=== PATIENT | male | born 1980 | race Caucasian/White ===

== ENCOUNTER 2018-03-29 12:53 | Inpatient (IN) | payer MEDICAID, OTHER ==
[~2018-03-29] VITALS: Ht 172.7 cm; Wt 105.2 kg
[~2018-03-29 12:53] MED LIST: CYAN250010 PO
[2018-03-29] MEDS ORDERED: MAGNESIUM SULFATE 2 GM, MVI, ADULT NO.1 WITH VIT K 10 ML, THIAMINE HCL 100 MG, FOLIC AC... IV ONE ×5 (13:30)
[2018-03-29] MEDS ORDERED: LORazepam 2 MG/ML VIAL IVP ONE (13:30)
[2018-03-29 13:46] LABS: BASOPHILS % (AUTO) 1.2 % (0.0-2.0); EOSINOPHILS % (AUTO) 1.1 % (1.0-6.0); HEMATOCRIT 43.7 % (41-53); HEMOGLOBIN 14.7 g/dL (13.5-17.5); LYMPHOCYTES # (AUTO) 0.9 K/uL (1.0-4.8); LYMPHOCYTES % (AUTO) 22.6 % (22.0-44.0); MEAN CORPUSCULAR HEMOGLOBIN 31.2 pg (26.0-34.0); MEAN CORPUSCULAR HGB CONC 33.6 G/dL (31.0-37.0); MEAN CORPUSCULAR VOLUME 93 fL (80-100); MONOCYTES # (AUTO) 0.6 K/uL (0.1-1.0); MONOCYTES % (AUTO) 13.5 % (2.0-9.0); NEUTROPHILS # (AUTO) 2.5 K/uL (1.8-7.7); NEUTROPHILS % (AUTO) 61.6 % (40.0-70.0); PLATELET COUNT (AUTO) 130 K/uL (150-450); RED CELL DISTRIBUTION WIDTH 14.2 % (11.5-14.5)
[2018-03-29 13:56] LABS: ANION GAP 16 mmol/L (8-16); CALCIUM, TOTAL 8.7 mg/dL (8.8-10.5); CARBON DIOXIDE 22 mmol/L (22-29); CHLORIDE 97 mmol/L (98-107); CREATININE 0.89 mg/dL (0.60-1.30); GLOMERULAR FILTR. RATE CALC > 60 mL/min (>60); GLUCOSE,RANDOM 93 mg/dL (70-110); POTASSIUM 3.5 mmol/L (3.5-5.1); SODIUM SERUM 135 mmol/L (136-145); UREA NITROGEN, BLOOD 5 mg/dL (7-18)
[2018-03-29 14:02] LABS: ALANINE AMINOTRANSFERASE 49 U/L (12-78); ALBUMIN 3.8 g/dL (3.4-5.0); ALKALINE PHOSPHATASE 130 U/L (46-116); ASPARTATE AMINOTRANSFERASE 95 U/L (15-37); BILIRUBIN,TOTAL 0.6 mg/dL (0.1-1.0)
[2018-03-29 14:50] LABS: APPEARANCE,URINE CLOUDY (CLEAR); BILIRUBIN,URINE NEGATIVE (NEGATIVE); GLUCOSE, URINE (UA) NEGATIVE (NEGATIVE); KETONES,URINE TRACE mg/dL (NEGATIVE); LEUKOCYTE ESTERASE ,URINE NEGATIVE (NEGATIVE); NITRATE,URINE NEGATIVE (NEGATIVE); OCCULT BLOOD,URINE MODERATE (NEGATIVE); PROTEIN,URINE SEE CONFIRM (NEGATIVE); UROBILINOGEN,URINE 0.2 mg/dL (<=1.0)
[2018-03-29 14:56] LABS: AMPHET/METH SCREEN,URINE NEGATIVE (NEGATIVE); BARBITURATE SCREEN, URINE NEGATIVE (NEGATIVE); BENZODIAZEPINES SCREEN,URINE NEGATIVE (NEGATIVE); CANNABINOID SCREEN,URINE NEGATIVE (NEGATIVE); COCAINE SCREEN,URINE NEGATIVE (NEGATIVE); METHADONE SCREEN, URINE NEGATIVE (NEGATIVE); OPIATE SCREEN,URINE NEGATIVE (NEGATIVE)
[2018-03-29 15:04] LABS: PHENCYCLIDINE SCREEN,URINE NEGATIVE (NEGATIVE)
[2018-03-29 15:12] LABS: SULFOSALICYLIC ACID,URINE Trace (Negative)
[2018-03-29 15:14] LABS: BACTERIA,URINE None Seen /HPF (None Seen); RBC,URINE 0-2 /HPF (0-2); SQUAMOUS EPITHELIAL CELL,UR Few /LPF (None Seen); WBC,URINE 0-2 /HPF (0-5)
[2018-03-29] MEDS ORDERED: LORazepam 2 MG TABLET PO PRN (15:45)
[2018-03-29] MEDS ORDERED: 0.9% SODIUM CHLORIDE 10 ML SYRINGE IVP PRN (15:45)
[2018-03-29] MEDS ORDERED: SODIUM CHLORIDE 0.9% 1,000 ML IV ONE ×2 (15:45→20:00)
[2018-03-29] MEDS ORDERED: ONDANSETRON HCL 4 MG/2 ML VIAL IVP PRN ×2 (15:45→20:00)
[2018-03-29] MEDS ORDERED: ACETAMINOPHEN 325 MG TABLET PO PRN ×2 (15:45→20:00)
[2018-03-29 15:49] LABS: PHOSPHORUS 2.1 mg/dL (2.5-4.9)
[2018-03-29 16:13] VITALS: BP 149/88
[2018-03-29 17:00] VITALS: BP 145/81
[2018-03-29 18:00] VITALS: BP 151/92
[2018-03-29 19:33] VITALS: BP 154/98
[2018-03-29] MEDS ORDERED: MAGNESIUM OXIDE 400 MG TABLET PO ONE (20:00)
[2018-03-29] MEDS ORDERED: LORazepam 2 MG/ML VIAL IVP PRN (20:00)
[2018-03-29] MEDS ORDERED: MAGNESIUM HYDROXIDE SUSPENSION 30 ML UDCUP PO PRN (20:00)
[2018-03-30] VITALS (8 sets, daily range): BP systolic 119–151; BP diastolic 64–98
[2018-03-30 06:28] LABS: BASOPHILS % (AUTO) 0.7 % (0.0-2.0); EOSINOPHILS % (AUTO) 2.2 % (1.0-6.0); HEMATOCRIT 40.7 % (41-53); HEMOGLOBIN 13.9 g/dL (13.5-17.5); LYMPHOCYTES # (AUTO) 0.8 K/uL (1.0-4.8); LYMPHOCYTES % (AUTO) 17.9 % (22.0-44.0); MEAN CORPUSCULAR HEMOGLOBIN 31.3 pg (26.0-34.0); MEAN CORPUSCULAR HGB CONC 34.2 G/dL (31.0-37.0); MEAN CORPUSCULAR VOLUME 91 fL (80-100); MONOCYTES # (AUTO) 0.8 K/uL (0.1-1.0); MONOCYTES % (AUTO) 16.8 % (2.0-9.0); NEUTROPHILS # (AUTO) 2.9 K/uL (1.8-7.7); NEUTROPHILS % (AUTO) 62.4 % (40.0-70.0); PLATELET COUNT (AUTO) 120 K/uL (150-450); RED BLOOD CELL COUNT(AUTO) 4.46 MIL/uL (4.50-5.90); RED CELL DISTRIBUTION WIDTH 14.2 % (11.5-14.5)
[2018-03-30 06:53] LABS: ALANINE AMINOTRANSFERASE 42 U/L (12-78); ALBUMIN 3.3 g/dL (3.4-5.0); ALKALINE PHOSPHATASE 103 U/L (46-116); ANION GAP 10 mmol/L (8-16); ASPARTATE AMINOTRANSFERASE 69 U/L (15-37); CALCIUM, TOTAL 7.8 mg/dL (8.8-10.5); CARBON DIOXIDE 26 mmol/L (22-29); CHLORIDE 102 mmol/L (98-107); CREATININE 0.75 mg/dL (0.60-1.30); GLOMERULAR FILTR. RATE CALC > 60 mL/min (>60); GLUCOSE,RANDOM 88 mg/dL (70-110); POTASSIUM 3.1 mmol/L (3.5-5.1); SODIUM SERUM 138 mmol/L (136-145); TOTAL PROTEIN, SERUM 7.1 g/dL (6.4-8.2); UREA NITROGEN, BLOOD 4 mg/dL (7-18)
[2018-03-30] MEDS ORDERED: LORazepam 1 MG TABLET PO PRN (07:00)
[2018-03-30] MEDS ORDERED: LORazepam 2 MG TABLET PO PRN (07:00)
[2018-03-30] MEDS ORDERED: MULTIVITAMINS WITH MINERALS, THERAPEUTIC TABLET PO SCH (09:00)
[2018-03-30] MEDS ORDERED: LORazepam 2 MG TABLET PO SCH (09:00)
[2018-03-30] MEDS ORDERED: PANTOPRAZOLE SODIUM 40 MG DR TABLET PO SCH (09:00)
[2018-03-30] MEDS ORDERED: MAGNESIUM SULFATE 2 GM/WATER 50 ML IV PRN (10:15)
[2018-03-30] MEDS ORDERED: POTASSIUM CHL 10 MEQ/WATER 50 ML IV PRN (10:15)
[2018-03-30] MEDS ORDERED: MAGNESIUM OXIDE 400 MG TABLET PO PRN (10:15)
[2018-03-30] MEDS ORDERED: MAGNESIUM SULFATE 4 GM/WATER 100 ML IV PRN (10:15)
[2018-03-30] MEDS: POTASSIUM CHLORIDE 20 MEQ ER TABLET PO PRN ×3 (10:38→17:08)
[2018-03-30] MEDS: ChlordiazePOXIDE HCL 10 MG CAPSULE PO SCH ×2 (15:09→20:10)
[2018-03-31 04:30] VITALS: BP 128/80
[2018-03-31] MEDS ORDERED: BENZ1TAB10 PO (04:31)
[2018-03-31] MEDS ORDERED: LITH600C PO (04:31)
[2018-03-31] MEDS ORDERED: OLAN15TA18 PO (04:31)
[2018-03-31] MEDS ORDERED: PROP20TA7 PO (04:31)
[2018-03-31] MEDS ORDERED: [UNRECOGNIZED DRUG - CODE] PO (04:31)
[2018-04-01] MEDS ORDERED: LORazepam 1 MG TABLET PO PRN (07:00)
[2018-04-01] MEDS ORDERED: LORazepam 1 MG TABLET PO SCH (09:00)
== END 2018-03-31 06:08 | disposition left against medical advice (07) | DRG 101 ==
LOC: EMS 12:54 → 5S 15:47 → 5N 17:46
PROVIDERS: ADMIT Internal Medicine; ATTEND Internal Medicine
DX: G40.89 Other seizures (principal); E66.9 Obesity, unspecified; E83.42 Hypomagnesemia; Z91.19 Patient's noncompliance with other medical treatment and regimen; F17.210 Nicotine dependence, cigarettes, uncomplicated; F10.10 Alcohol abuse, uncomplicated; Z87.820 Personal history of traumatic brain injury; Z87.01 Personal history of pneumonia (recurrent); Y90.9 Presence of alcohol in blood, level not specified; Z68.35 Body mass index [BMI] 35.0-35.9, adult
CPT/HCPCS: 70450; 83735; 84100; 84132; 93005; 96365; 96375; G0378; G0480; J2060; J3411; J3475; J3490; J7030

== ENCOUNTER 2020-08-21 16:58 | Emergency (ER) | payer MEDICAID, OTHER ==
[~2020-08-21] VITALS: Ht 175.3 cm; Wt 100.0 kg
[~2020-08-21 16:58] MED LIST changes: +BENZ1TAB10 PO; -CYAN250010 PO; +LITH600C PO; +OLAN15TA18 PO; +PROP20TA7 PO; +[UNRECOGNIZED DRUG - CODE] PO
[2020-08-21 18:24] LABS: BASOPHILS % (AUTO) 1.3 % (0.0-2.0); EOSINOPHILS % (AUTO) 0.9 % (1.0-6.0); HEMATOCRIT 39.9 % (41-53); HEMOGLOBIN 13.3 g/dL (13.5-17.5); LYMPHOCYTES % (AUTO) 17.3 % (22.0-44.0); MEAN CORPUSCULAR HEMOGLOBIN 30.8 pg (26.0-34.0); MEAN CORPUSCULAR HGB CONC 33.3 G/dL (31.0-37.0); MEAN CORPUSCULAR VOLUME 93 fL (80-100); MONOCYTES # (AUTO) 0.8 K/uL (0.1-1.0); MONOCYTES % (AUTO) 14.5 % (2.0-9.0); NEUTROPHILS # (AUTO) 3.7 K/uL (1.8-7.7); PLATELET COUNT (AUTO) 254 K/uL (150-450); RED BLOOD CELL COUNT(AUTO) 4.31 MIL/uL (4.50-5.90); RED CELL DISTRIBUTION WIDTH 13.6 % (11.5-14.5)
[2020-08-21] MEDS ORDERED: IOVERSOL 320 MG/ML 100 ML VIAL ONE (18:37)
[2020-08-21] MEDS ORDERED: SODIUM CHLORIDE 0.9% 100 ML ONE (18:37)
[2020-08-21 18:40] LABS: ANION GAP 10 mmol/L (8-16); CALCIUM, TOTAL 9.2 mg/dL (8.8-10.5); CARBON DIOXIDE 29 mmol/L (22-29); CHLORIDE 102 mmol/L (98-107); GLOMERULAR FILTR. RATE CALC > 60 mL/min (>60); GLUCOSE,RANDOM 97 mg/dL (70-110); POTASSIUM 3.7 mmol/L (3.5-5.1); SODIUM SERUM 141 mmol/L (136-145); UREA NITROGEN, BLOOD 5 mg/dL (7-18)
[2020-08-21 18:48] LABS: ALANINE AMINOTRANSFERASE 32 U/L (12-78); ALBUMIN 3.6 g/dL (3.4-5.0); ALKALINE PHOSPHATASE 109 U/L (46-116); ASPARTATE AMINOTRANSFERASE 48 U/L (15-37); BILIRUBIN,TOTAL 0.5 mg/dL (0.1-1.0); LIPASE 176 U/L (73-393); TOTAL PROTEIN, SERUM 8.3 g/dL (6.4-8.2)
[2020-08-21] MEDS ORDERED: CEPHALEXIN MONOHYDRATE 500 MG CAPSULE PO ONE (20:30)
[2020-08-21 20:45] VITALS: BP 149/92
== END 2020-08-21 21:04 ==
LOC: EMS 16:58
DX: N39.0 Urinary tract infection, site not specified (principal)
CPT/HCPCS: 36415; 74177; 80053; 83690; 85025; 99285; J7050; Q9967

== ENCOUNTER 2020-08-26 12:25 | Inpatient (IN) | payer OTHER ==
[~2020-08-26] VITALS: Ht 170.2 cm; Wt 100.0 kg
[2020-08-26 12:54] LABS: COVID AG,FIA SOURCE NASOPHARYNGEAL
[2020-08-26 13:07] LABS: BASOPHILS % (AUTO) 0.6 % (0.0-2.0); EOSINOPHILS % (AUTO) 0.9 % (1.0-6.0); HEMATOCRIT 36.4 % (41-53); HEMOGLOBIN 12.1 g/dL (13.5-17.5); LYMPHOCYTES # (AUTO) 0.8 K/uL (1.0-4.8); LYMPHOCYTES % (AUTO) 13.3 % (22.0-44.0); MEAN CORPUSCULAR HEMOGLOBIN 30.9 pg (26.0-34.0); MEAN CORPUSCULAR HGB CONC 33.3 G/dL (31.0-37.0); MEAN CORPUSCULAR VOLUME 93 fL (80-100); MONOCYTES # (AUTO) 1.3 K/uL (0.1-1.0); MONOCYTES % (AUTO) 19.6 % (2.0-9.0); NEUTROPHILS # (AUTO) 4.2 K/uL (1.8-7.7); NEUTROPHILS % (AUTO) 65.6 % (40.0-70.0); PLATELET COUNT (AUTO) 232 K/uL (150-450); RED BLOOD CELL COUNT(AUTO) 3.92 MIL/uL (4.50-5.90); RED CELL DISTRIBUTION WIDTH 13.3 % (11.5-14.5)
[2020-08-26 13:25] LABS: ANION GAP 14 mmol/L (8-16); CALCIUM, TOTAL 9.3 mg/dL (8.8-10.5); CARBON DIOXIDE 22 mmol/L (22-29); CHLORIDE 103 mmol/L (98-107); CREATININE 1.14 mg/dL (0.60-1.30); GLOMERULAR FILTR. RATE CALC > 60 mL/min (>60); GLUCOSE,RANDOM 70 mg/dL (70-110); POTASSIUM 3.1 mmol/L (3.5-5.1); SODIUM SERUM 139 mmol/L (136-145); UREA NITROGEN, BLOOD 23 mg/dL (7-18)
[2020-08-26 13:32] LABS: ALANINE AMINOTRANSFERASE 28 U/L (12-78); ALBUMIN 3.8 g/dL (3.4-5.0); ALKALINE PHOSPHATASE 74 U/L (46-116); ASPARTATE AMINOTRANSFERASE 42 U/L (15-37); BILIRUBIN,TOTAL 0.9 mg/dL (0.1-1.0); TOTAL PROTEIN, SERUM 8.4 g/dL (6.4-8.2)
[2020-08-26 13:37] LABS: LITHIUM < 0.20 mmol/L (0.60-1.20)
[2020-08-26] MEDS ORDERED: MAGNESIUM SULFATE 2 GM, MVI, ADULT NO.1 WITH VIT K 10 ML, THIAMINE 100 MG, FOLIC ACID 1... IV ONE ×5 (14:00)
[2020-08-26] MEDS ORDERED: POTASSIUM CHLORIDE 20 MEQ ER TABLET PO ONE (14:00)
[2020-08-26] MEDS ORDERED: 0.9% SODIUM CHLORIDE 10 ML SYRINGE IVP PRN (14:45)
[2020-08-26] MEDS ORDERED: LORazepam 2 MG/ML VIAL IVP ONE (15:15)
[2020-08-26 16:19] VITALS: BP 142/89
[2020-08-26] MEDS ORDERED: BISACODYL 10 MG RECTAL RECTAL SUPPOSITORY PR PRN (18:45)
[2020-08-26] MEDS ORDERED: MAGNESIUM HYDROXIDE SUSPENSION 30 ML UDCUP PO PRN (18:45)
[2020-08-26] MEDS ORDERED: LORazepam 2 MG/ML VIAL IVP PRN (18:45)
[2020-08-26] MEDS ORDERED: ONDANSETRON HCL 4 MG/2 ML VIAL IVP PRN (18:45)
[2020-08-26] MEDS ORDERED: ACETAMINOPHEN 325 MG TABLET PO PRN (18:45)
[2020-08-26] MEDS ORDERED: IPRATROPIUM BROMIDE 0.5 MG/2.5 ML NEB SOLUTION NEB PRN (18:45)
[2020-08-26] MEDS ORDERED: ALBUTEROL SULFATE 2.5 MG/0.5 ML NEB SOLUTION NEB PRN (18:45)
[2020-08-26] MEDS ORDERED: ZOLPIDEM TARTRATE 5 MG TABLET PO PRN (18:45)
[2020-08-26 19:32] VITALS: BP 151/87
[2020-08-26] MEDS: SODIUM CHLORIDE 0.45% 1,000 ML IV SCH (19:52)
[2020-08-26] MEDS: DOCUSATE SODIUM 100 MG CAPSULE PO SCH (21:00)
[2020-08-26 22:59] VITALS: BP 155/66
[2020-08-26] MEDS: ChlordiazePOXIDE HCL 25 MG CAPSULE PO SCH (23:04)
[2020-08-26] MEDS: HEPARIN SODIUM,PORCINE 5,000 UNITS/ML VIAL SQ SCH (23:25)
[2020-08-27 03:48] VITALS: BP 134/85
[2020-08-27] MEDS: ChlordiazePOXIDE HCL 25 MG CAPSULE PO SCH ×3 (05:38→17:45)
[2020-08-27 06:30] LABS: AMPHET/METH SCREEN,URINE NEGATIVE (NEGATIVE); BARBITURATE SCREEN, URINE NEGATIVE (NEGATIVE); BENZODIAZEPINES SCREEN,URINE NEGATIVE (NEGATIVE); CANNABINOID SCREEN,URINE NEGATIVE (NEGATIVE); COCAINE SCREEN,URINE NEGATIVE (NEGATIVE); METHADONE SCREEN, URINE NEGATIVE (NEGATIVE); OPIATE SCREEN,URINE NEGATIVE (NEGATIVE)
[2020-08-27 06:34] LABS: PHENCYCLIDINE SCREEN,URINE NEGATIVE (NEGATIVE)
[2020-08-27 07:34] VITALS: BP 138/78
[2020-08-27] MEDS: HEPARIN SODIUM,PORCINE 5,000 UNITS/ML VIAL SQ SCH ×3 (08:24→23:59)
[2020-08-27] MEDS: DOCUSATE SODIUM 100 MG CAPSULE PO SCH ×2 (08:25→23:59)
[2020-08-27] MEDS: MULTIVITAMINS, THERAPEUTIC TABLET PO SCH (08:25)
[2020-08-27] MEDS: FOLIC ACID 1 MG TABLET PO SCH (08:25)
[2020-08-27] MEDS: PANTOPRAZOLE SODIUM 40 MG/VIAL IVP SCH (08:25)
[2020-08-27] MEDS: THIAMINE 100 MG TABLET PO SCH (08:25)
[2020-08-27] MEDS: POTASSIUM CHLORIDE 20 MEQ ER TABLET PO SCH (08:26)
[2020-08-27] MEDS ORDERED: PROP20TA18 PO (11:24)
[2020-08-27] MEDS ORDERED: LITH600C5 PO (11:24)
[2020-08-27] MEDS: SODIUM CHLORIDE 0.45% 1,000 ML IV SCH (15:02)
[2020-08-27 20:13] VITALS: BP 122/64
[2020-08-27 23:37] VITALS: BP 122/77
[2020-08-28] MEDS: SODIUM CHLORIDE 0.45% 1,000 ML IV SCH ×2 (00:02→15:57)
[2020-08-28] MEDS: ChlordiazePOXIDE HCL 25 MG CAPSULE PO SCH ×4 (00:06→20:34)
[2020-08-28 05:03] VITALS: BP 125/69
[2020-08-28 08:11] VITALS: BP 141/74
[2020-08-28] MEDS: MULTIVITAMINS, THERAPEUTIC TABLET PO SCH (09:19)
[2020-08-28] MEDS: POTASSIUM CHLORIDE 20 MEQ ER TABLET PO SCH (09:20)
[2020-08-28] MEDS: DOCUSATE SODIUM 100 MG CAPSULE PO SCH ×2 (09:20→20:34)
[2020-08-28] MEDS: FOLIC ACID 1 MG TABLET PO SCH (09:20)
[2020-08-28] MEDS: THIAMINE 100 MG TABLET PO SCH (09:20)
[2020-08-28] MEDS: PANTOPRAZOLE SODIUM 40 MG/VIAL IVP SCH (09:21)
[2020-08-28] MEDS: HEPARIN SODIUM,PORCINE 5,000 UNITS/ML VIAL SQ SCH ×3 (09:21→23:23)
[2020-08-28 11:29] VITALS: BP 139/77
[2020-08-28 16:22] VITALS: BP 124/81
[2020-08-28 20:18] VITALS: BP 100/59
[2020-08-28 23:20] VITALS: BP 115/75
[2020-08-29 04:59] VITALS: BP 108/69
[2020-08-29 07:55] VITALS: BP 131/86
[2020-08-29] MEDS: DOCUSATE SODIUM 100 MG CAPSULE PO SCH (08:06)
[2020-08-29] MEDS: MULTIVITAMINS, THERAPEUTIC TABLET PO SCH (08:06)
[2020-08-29] MEDS: FOLIC ACID 1 MG TABLET PO SCH (08:06)
[2020-08-29] MEDS: POTASSIUM CHLORIDE 20 MEQ ER TABLET PO SCH (08:06)
[2020-08-29] MEDS: ChlordiazePOXIDE HCL 25 MG CAPSULE PO SCH (08:06)
[2020-08-29] MEDS: PANTOPRAZOLE SODIUM 40 MG/VIAL IVP SCH (08:07)
[2020-08-29] MEDS: SODIUM CHLORIDE 0.45% 1,000 ML IV SCH (08:07)
[2020-08-29] MEDS: HEPARIN SODIUM,PORCINE 5,000 UNITS/ML VIAL SQ SCH (08:07)
[2020-08-29] MEDS: THIAMINE 100 MG TABLET PO SCH (08:16)
[2020-08-29] MEDS ORDERED: MULT-248 PO (13:34)
[2020-08-29] MEDS ORDERED: ACET-784 PO (13:35)
[2020-08-29] MEDS ORDERED: MOM30 PO (13:36)
[2020-08-30] MEDS ORDERED: ChlordiazePOXIDE HCL 25 MG CAPSULE PO SCH (09:00)
[2020-08-31] MEDS ORDERED: ChlordiazePOXIDE HCL 25 MG CAPSULE PO SCH (09:00)
== END 2020-08-29 14:25 | DRG 897 ==
LOC: EMS 12:25 → 6S 16:38
PROVIDERS: ADMIT Hospitalist; ATTEND Hospitalist
DX: F10.239 Alcohol dependence with withdrawal, unspecified (principal); F23 Brief psychotic disorder; E66.9 Obesity, unspecified; Z02.89 Encounter for other administrative examinations; Z87.891 Personal history of nicotine dependence; Z68.34 Body mass index [BMI] 34.0-34.9, adult; Z20.822 Contact with and (suspected) exposure to COVID-19
CPT/HCPCS: 84132; 87426; 99285; C9113; G0480; J1644; J2060; J3411; J3475; J3490; J7030

== ENCOUNTER 2021-02-26 09:22 | Emergency (ER) | payer OTHER ==
[~2021-02-26] VITALS: Ht 172.7 cm; Wt 100.0 kg
[~2021-02-26 09:22] MED LIST changes: +ACET-784 PO; -BENZ1TAB10 PO; -LITH600C PO; +MOM30 PO; +MULT-248 PO; -OLAN15TA18 PO; -PROP20TA7 PO; -[UNRECOGNIZED DRUG - CODE] PO
[2021-02-26 09:44] VITALS: BP 147/87
[2021-02-26] MEDS ORDERED: LevETIRAcetam 1,000 MG in DEXTROSE 5%-WATER 100 ML IV ONE (10:00)
[2021-02-26] MEDS ORDERED: LORazepam 2 MG/ML VIAL IVP ONE (10:00)
[2021-02-26 10:21] LABS: BASOPHILS % (AUTO) 0.6 % (0.0-2.0); EOSINOPHILS % (AUTO) 0.4 % (1.0-6.0); HEMATOCRIT 41.2 % (41-53); HEMOGLOBIN 13.6 g/dL (13.5-17.5); LYMPHOCYTES # (AUTO) 0.3 K/uL (1.0-4.8); MEAN CORPUSCULAR HEMOGLOBIN 28.9 pg (26.0-34.0); MEAN CORPUSCULAR VOLUME 88 fL (80-100); MONOCYTES # (AUTO) 0.5 K/uL (0.1-1.0); MONOCYTES % (AUTO) 8.5 % (2.0-9.0); NEUTROPHILS # (AUTO) 4.8 K/uL (1.8-7.7); PLATELET COUNT (AUTO) 109 K/uL (150-450); RED CELL DISTRIBUTION WIDTH 18.8 % (11.5-14.5)
[2021-02-26 10:29] LABS: ANION GAP 13 mmol/L (8-16); CALCIUM, TOTAL 9.4 mg/dL (8.8-10.5); CARBON DIOXIDE 28 mmol/L (22-29); CHLORIDE 101 mmol/L (98-107); CREATININE 0.91 mg/dL (0.60-1.30); GLOMERULAR FILTR. RATE CALC > 60 mL/min (>60); GLUCOSE,RANDOM 96 mg/dL (70-110); POTASSIUM 4.5 mmol/L (3.5-5.1); SODIUM SERUM 142 mmol/L (136-145); UREA NITROGEN, BLOOD 8 mg/dL (7-18)
[2021-02-26 10:35] LABS: ALANINE AMINOTRANSFERASE 70 U/L (12-78); ALBUMIN 4.2 g/dL (3.4-5.0); ALKALINE PHOSPHATASE 124 U/L (46-116); ASPARTATE AMINOTRANSFERASE 96 U/L (15-37); BILIRUBIN,TOTAL 1.1 mg/dL (0.1-1.0); TOTAL PROTEIN, SERUM 8.3 g/dL (6.4-8.2)
[2021-02-26 10:36] LABS: NEUTROPHILS % (AUTO) 85.5 % (40.0-70.0)
== END 2021-02-26 11:15 | disposition home or self-care (01) ==
LOC: EMS 09:39
DX: F10.239 Alcohol dependence with withdrawal, unspecified (principal); R56.9 Unspecified convulsions; Y90.0 Blood alcohol level of less than 20 mg/100 ml
CPT/HCPCS: 36415; 80053; 85025; 96374; 99283; G0480; J2060; 99284; J0712; J7060